=== PATIENT | male | born 1990 | race Caucasian/White ===

== ENCOUNTER 2017-02-07 22:56 | Emergency (ER) | payer BC, OTHER ==
[~2017-02-07] VITALS: Ht 170.2 cm; Wt 75.0 kg
[~2017-02-07 22:56] MED LIST: AMOX875T3 PO; AMPH20CA3 PO; ESCI1TAB10 PO; HYDR-5688 PO
[2017-02-07 23:00] VITALS: TEMP 36.7; Ht 170.2 cm; Wt 75.0 kg
[2017-02-07] MEDS ORDERED: IBUPROFEN 600 MG TAB PO STA (23:10)
[2017-02-07] MEDS ORDERED: ABL/15 PO (23:59)
[2017-02-08 00:11] VITALS: BP 131/82; PULSE 99; O2SAT 100
--- NOTE | 2017-02-08 03:42 | EMERGENCY ROOM VISIT NOTE ---
ED Visit Note First contact with patient: 23:04 CHIEF COMPLAINT: Ankle pain HISTORY OF PRESENT ILLNESS: This 26-year-old patient presents to the emergency department with friend after sustaining an injury to the right ankle and foot with a twisting, inversion motion jumping off a truck at work. Patient states this is a work-related injury. The patient complains of pain along the outside of the ankle. The patient complains of pain of the foot. The patient rates the pain as throbbing and 5/10. The patient is barely able to bear weight on the foot. Constant pain, worse with movement, weight bearing, and the dependent position. No knee pain, the patient is able to move their toes. No numbness or weakness of the foot, no laceration. The patient has not had a previous fracture to this ankle. The patient has taken nothing for the pain. The patient denies any other injury. REVIEW OF SYSTEMS: A 6 system review of systems was completed with positives and pertinent negatives listed in the HPI. ALLERGIES: Bee stings, sulfa MEDICATIONS: Stormy, reviewed PMH: ADHD, bipolar SOCIAL HISTORY: No drug use PHYSICAL EXAM: Vital Signs: Reviewed Nurse's notes, vital signs stable. GENERAL : Pleasant male, no acute distress, but appears in pain, well-developed, well- nourished. MENTAL STATUS: Alert, oriented to person place and time, and cooperative. MUSCULOSKELETAL: The right ankle is swollen and tender over the lateral malleolus, but the skin is intact and there is no ligamentous instability. There is no fifth metatarsal tenderness. There is tenderness over the rest of the foot. There is no calf or tibia/fibular tenderness. There is no visual deformity. The foot and toes are warm and well-perfused. Dorsalis pedis pulse 2+. Sensation to pain and light touch is intact. Capillary refill less than 2 seconds. EMERGENCY DEPARTMENT COURSE: I examined the patient. Motrin and ice pack were given. X-rays of the right foot and ankle were reviewed by myself and my attending and reveal no fracture. AirGel splint was applied to the ankle under my direction and the position was satisfactory. Neurovascular status was rechecked and intact. The patient was instructed on the use of crutches. Patient was advised to follow-up with his Worker's Comp. doctor or with orthopedics in a few days if symptoms persist or here in the ER sooner for severe pain, numbness, tingling, worsening signs or symptoms or as needed. The patient was discharged home in good condition. Differential diagnoses include sprain, strain, fracture, dislocation and other etiologies were considered. DIAGNOSIS: #1 right ankle sprain #2 work-related injury DISCHARGE INSTRUCTIONS: Ibuprofen(Motrin, Advil) may be used for fever or pain. Use 600mg every six hours as needed. Take with food. Avoid using more than 2400mg in a 24 hour period. Do not use 2400mg per day for more than three consecutive days without physician direction. Prolonged inappropriate use can lead to stomach upset or ulcers. This medication can be taken if you need to drive, work, or perform activities which may be dangerous when taking narcotic pain medication. (AND/OR) Acetaminophen(Tylenol) may be used for fever or pain. Use 1000mg every six hours as needed. Avoid using more than 4000mg in a 24 hour period. This medication can be taken if you need to drive, work, or perform activities which may be dangerous when taking narcotic pain medication. Ice compresses for 20 minutes at a time four times daily for 2-3 days. Use the crutches as instructed. Rest and elevate your injury. Wear ankle gel splint until pain subsides. Do not have it so tight that you cannot feel your foot. Continue current medications. Return to the ER immediately for any numbness, tingling, severe pain, extreme swelling in the extremity or as needed. Call Orthopedics in 3-5 days if symptroms persist to arrange follow up for your injury. Current/Historical Medications Scheduled Amphetamine-Dextroamphetamine 20MG (Adderall Xr 20MG), 20 MG PO BID Aripiprazole (Abilify), 15 MG PO DAILY Allergies Coded Allergies: BEE STING (Verified Allergy, Intermediate, swelling, 02/07/17) Sulfa Antibiotics (Unverified Allergy, Unknown, UNKNOWN, 02/07/17) Vital Signs Date Time Temp Pulse Resp B/P (MAP) Pulse Ox O2 Delivery O2 Flow Rate FiO2 02/08/17 00:11 99 18 131/82 100 02/07/17 23:00 36.7 121 18 124/76 99 Room Air Medications Administered Medications (Trade) Dose Ordered Sig/Maria Luisa Route Start Time Stop Time Status Last Admin Dose Admin Ibuprofen (Motrin Tab) 600 mg NOW STAT PO 02/07/17 23:10 02/07/17 23:11 DC 02/07/17 23:16 600 MG Departure Information Referrals Eros Matta M.D. (PCP) Patient Instructions [facility]
--- NOTE | 2017-02-08 07:52 | DIAGNOSTIC IMAGING REPORT ---
R ANKLE MIN 3 VIEWS ROUTINE CLINICAL HISTORY: fall, pain trauma. Pain. COMPARISON: None. DISCUSSION: Small heel spur. No acute bony abnormality. Ankle mortise is aligned anatomically. There is no evidence for soft tissue swelling. IMPRESSION: Small heel spur. Otherwise negative study. The above report was generated using voice recognition software. It may contain grammatical, syntax or spelling errors. Electronically signed by: Syd Brown M.D. 02/08/2017 7:51 AM Dictated Date/Time: 02/08/2017 7:50 AM
--- NOTE | 2017-02-08 07:54 | DIAGNOSTIC IMAGING REPORT ---
R FOOT MIN 3 VIEWS ROUTINE CLINICAL HISTORY: fall, pain COMPARISON: None. DISCUSSION: The bones and joint spaces appear intact. There is no evidence of fracture, dislocation or bony disease. There is no evidence for soft tissue swelling. IMPRESSION: Negative study. The above report was generated using voice recognition software. It may contain grammatical, syntax or spelling errors. Electronically signed by: Syd Brown M.D. 02/08/2017 7:52 AM Dictated Date/Time: 02/08/2017 7:51 AM
== END 2017-02-08 00:12 | disposition home or self-care (01) ==
LOC: C.EDB 22:58 → C.EDC 02-08 00:12
DX: S93.401A Sprain of unspecified ligament of right ankle, initial encounter (principal); X50.9XXA Other and unspecified overexertion or strenuous movements or postures, initial encounter; Y99.0 Civilian activity done for income or pay; M77.9 Enthesopathy, unspecified; F90.9 Attention-deficit hyperactivity disorder, unspecified type; Z79.899 Other long term (current) drug therapy

== ENCOUNTER 2021-01-25 01:33 | Inpatient (IN) ==
[2021-01-25] MEDS ORDERED: SODIUM CHLORIDE 0.9% 1000ML 1,000 ML IV SCH ×2 (01:45→09:49)
--- NOTE | 2021-01-25 01:55 | Emergency Department Note ---
History of Present Illness General Chief complaint: Unresponsive Stated complaint: UNRESPONSIVE/OVERDOSE Time Seen by Provider: 01/25/21 01:41 History of Present Illness This 30-year-old presents to the ER complaining of overdose Location: Generalized Quality: Overdose Severity: Moderate Duration: Tonight Timing: Tonight Context: Patient states he took some drugs and overdosed on accident. He does not recall what he took Modifying factors: better with Narcan; worse with nothing Patient was given Narcan from EMS and police. Apparently there was no pulse and the girlfriend was doing CPR. EMS arrived and states there was a pulse. Patient does not recall the events. Patient will not tell me what he took. He states he does use drugs. He would not tell me what type of drugs he uses. Patient currently complains of a headache. Patient denies chest pain, dyspnea, abdominal pain or any other medical complaints. He states he snorts his drugs. He does not want rehab. Home Medications Medication Instructions Recorded Confirmed Type bupropion HCl 300 mg 24 hr tablet, 300 mg PO QAM 10/21/19 10/21/19 History extended release Allergies Allergy/AdvReac Type Severity Reaction Status Date / Time bee venom protein (honey bee) Allergy Intermediate swelling Verified 10/21/19 19:35 Sulfa (Sulfonamide Allergy Unknown Unknown Verified 10/21/19 19:35 Antibiotics) Past Med/Surg History Medical History (Updated 01/25/21 @ 03:50 by Pushpa Leon PA-C) Depression Surgical History (Updated 01/25/21 @ 01:52 by Pushpa Leon PA-C) No pertinent past surgical history Social History Smoking Status: Current every day smoker Tobacco Type: Cigarettes Feels Safe at Home: Yes Review of Systems A total of 10 systems reviewed and were otherwise negative Physical Exam Vital Signs Vital Signs - 24 hr 01/25/21 01:39 01/25/21 01:40 01/25/21 01:47 Temperature 36.8 C 36.7 C Temperature Source Oral Oral Pulse Rate 132 H 129 H Pulse Rate [Right Finger] 108 H Pulse Rate from SpO2 Sensor 129 H Respiratory Rate 16 24 16 Blood Pressure 128/64 Blood Pressure [Right Arm] 128/64 Blood Pressure Mean 85 Blood Pressure Mean [Right Arm] 85 Blood Pressure Position Lying Pulse Oximetry 98 97 95 Oxygen Delivery Method Room Air Room Air Sepsis Recent Fever Within 48 Hours No Sepsis New/Unexplained Change in Mental Status No Sepsis Action Taken by Nursing No Action Required 01/25/21 01:50 01/25/21 02:11 01/25/21 02:20 Temperature Temperature Source Pulse Rate 117 H 120 H 112 H Pulse Rate [Right Finger] Pulse Rate from SpO2 Sensor 117 H 113 H Respiratory Rate 27 H 23 20 Blood Pressure Blood Pressure [Right Arm] Blood Pressure Mean Blood Pressure Mean [Right Arm] Blood Pressure Position Pulse Oximetry 94 93 Oxygen Delivery Method Sepsis Recent Fever Within 48 Hours Sepsis New/Unexplained Change in Mental Status Sepsis Action Taken by Nursing 01/25/21 02:30 01/25/21 02:45 01/25/21 03:30 Temperature Temperature Source Pulse Rate 109 H 109 H 103 H Pulse Rate [Right Finger] Pulse Rate from SpO2 Sensor 111 H 109 H 103 H Respiratory Rate 20 18 20 Blood Pressure 102/65 101/66 92/55 L Blood Pressure [Right Arm] Blood Pressure Mean 77 77 67 Blood Pressure Mean [Right Arm] Blood Pressure Position Pulse Oximetry 92 92 92 Oxygen Delivery Method Room Air Sepsis Recent Fever Within 48 Hours Sepsis New/Unexplained Change in Mental Status Sepsis Action Taken by Nursing 01/25/21 03:45 01/25/21 04:00 01/25/21 04:15 Temperature Temperature Source Pulse Rate 105 H 99 H 108 H Pulse Rate [Right Finger] Pulse Rate from SpO2 Sensor 104 H 98 H 107 H Respiratory Rate 22 21 25 H Blood Pressure 98/57 L 103/57 L 100/68 Blood Pressure [Right Arm] Blood Pressure Mean 70 72 78 Blood Pressure Mean [Right Arm] Blood Pressure Position Pulse Oximetry 91 93 96 Oxygen Delivery Method Room Air Room Air Sepsis Recent Fever Within 48 Hours Sepsis New/Unexplained Change in Mental Status Sepsis Action Taken by Nursing 01/25/21 05:00 01/25/21 05:15 01/25/21 05:45 Temperature Temperature Source Pulse Rate 97 H 99 H 102 H Pulse Rate [Right Finger] Pulse Rate from SpO2 Sensor 98 H 98 H 100 H Respiratory Rate 14 18 18 Blood Pressure 102/68 116/63 119/45 L Blood Pressure [Right Arm] Blood Pressure Mean 79 80 69 Blood Pressure Mean [Right Arm] Blood Pressure Position Pulse Oximetry 98 98 99 Oxygen Delivery Method Sepsis Recent Fever Within 48 Hours Sepsis New/Unexplained Change in Mental Status Sepsis Action Taken by Nursing VITALS: Vitals are noted on the nurse's note and reviewed by myself. Vital signs stable. GENERAL: White male following all commands, in no acute distress, nondiaphoretic, well-developed well-nourished. SKIN: Small contusion to right synagogue region, the rest of the skin was without rashes, erythema, edema, or bruising. There is no tenting of the skin. Capillary reflex less than 2 seconds. HEAD: Normocephalic atraumatic. EARS: External auditory canals clear, EYES: Pupils equal round and reactive to light and accommodation. Conjunctivae without injection, sclerae without icterus. Extraocular movements intact. NOSE: Patent, turbinates without inflammation or discharge. MOUTH: Mucous membranes moist. Pharynx without erythema or exudate. Uvula midline. Airway patent. Tongue does not deviate. NECK: Supple without nuchal rigidity. No lymphadenopathy. No thyromegaly. Cervical spine is nontender. No JVD. HEART: Regular rate and rhythm without murmurs gallops or rubs. LUNGS: Clear to auscultation bilaterally without wheezes, rales or rhonchi. No retractions or accessory muscle use. ABDOMEN: Positive bowel sounds x 4. Normal tympanic percussion. Soft, nontender, without masses or organomegaly. Walls sign negative. No guarding or rebound tenderness. No CVA tenderness MUSCULOSKELETAL: No muscle atrophy, erythema, or edema noted. NEURO: Patient was alert and oriented to person place and time. Normal sensation to light and sharp touch. No focal neurological deficits. Course Administered Medications Discontinued Medications Sodium Chloride (Nss 1000ml) 1,000 mls @ 999 mls/hr IV .Q1H1M RICKY Stop: 01/25/21 02:45 Last Infusion: 01/25/21 03:17 Dose: 0 mls/hr Documented by: [id number] Admin: 01/25/21 02:13 Dose: 999 mls/hr Documented by: [id number] Lactated Ringer's (Lr) 1,000 mls @ 999 mls/hr IV .Q1H1M ONE Stop: 01/25/21 04:19 Last Infusion: 01/25/21 04:27 Dose: 0 mls/hr Documented by: [id number] Admin: 01/25/21 03:26 Dose: 999 mls/hr Documented by: [id number] Ioversol (Optiray 320 125ml) 125 ml IV ONCE ONE Stop: 01/25/21 03:10 Last Admin: 01/25/21 03:09 Dose: 105 ml Documented by: [id number] Impression & Plan Accidental heroin overdose, Elevated troponin Discharge Plan Visit Data Chief Complaint: Unresponsive Stated Complaint: UNRESPONSIVE/OVERDOSE ED Provider: Kinga Lott ED Midlevel Provider: Pushpa Leon Discharge Problem: Accidental heroin overdose, Elevated troponin Patient Disposition: Admitted As Inpatient Condition: Fair Discharge Instructions Interventions: ED Discharge Assessment Last Done: 01/25/21 06:02 Forms Stand Alone Forms: My [facility] [employer] Prescriptions Prescriptions: No Action bupropion HCl 300 mg Tablet Extended Release 24 Hr 300 mg PO QAM RF: 0 Referrals Referrals: Eros Matta MD [Primary Care Provider] - Medical Decision Making Medical Records Attestation: I reviewed the patient's medical records. Home Medications Current Medication List: was personally reviewed by me Laboratory Data Attestation: I reviewed the patient's lab results. Result diagrams: 01/25/21 01:54 01/25/21 01:54 Lab Results 01/25/21 01/25/21 01/25/21 Range/Units 01:54 01:54 01:54 WBC 25.56 H (4.8-10.8) K/uL RBC 4.93 (4.7-6.1) M/uL Hgb 15.5 (14.0-18.0) g/dL Hct 44.4 (42-52) % MCV 90.1 (80-100) fL MCH 31.4 (25-34) pg MCHC 34.9 (32-36) g/dL RDW Std Deviation 41.5 (36.4-46.3) fL RDW Coeff of Pedro 12.7 (11.5-14.5) % Plt Count 223 (130-400) K/uL MPV 10.0 (7.4-10.4) fL Immature Gran % (Auto) 0.9 % Neut % (Auto) 85.2 % Lymph % (Auto) 9.8 % [place] % (Auto) 3.9 % Eos % (Auto) 0.0 % Baso % (Auto) 0.2 % Neut # (Auto) 21.77 H (1.4-6.5) K/uL Lymph # (Auto) 2.51 (1.2-3.4) K/uL [place] # (Auto) 1.00 H (0.11-0.59) K/uL Eos # (Auto) 0.01 (0-0.5) K/uL Baso # (Auto) 0.04 (0-0.2) K/uL Immature Gran # (Auto) 0.23 H (0.00-0.02) K/uL RBC Morphology Unremarkable Sodium 136 (136-145) mmol/L Potassium 3.6 (3.5-5.1) mmol/L Chloride 100 (98-107) mmol/L Carbon Dioxide 25 (21-32) mmol/L Anion Gap 11.0 (3-11) BUN 11 (7-18) mg/dl Creatinine 1.64 H (0.6-1.4) mg/dl Est Cr Clr Drug Dosing 69.2 ml/min Est GFR ( Amer) 65.0 ml/min Est GFR (Non-Af Amer) 56.1 ml/min BUN/Creatinine Ratio 7.0 L (10-20) Glucose 254 H (70-99) mg/dl Calcium 8.7 (8.5-10.1) mg/dl Magnesium 2.5 H (1.8-2.4) mg/dl Total Bilirubin 0.3 (0.2-1) mg/dl AST 46 H (15-37) U/L ALT 92 H (12-78) U/L Alkaline Phosphatase 63 (45-117) U/L Total Creatine Kinase 109 (39-308) U/L Troponin I 0.082 H* (0-0.045) ng/ml Total Protein 7.7 (6.4-8.2) gm/dl Albumin 4.2 (3.4-5.0) gm/dl Globulin 3.5 (2.5-4.0) gm/dl Albumin/Globulin Ratio 1.2 (0.9-2) Salicylates 2.8 (2.8-20) mg/dl Acetaminophen < 2 L (10-30) ug/ml Ethyl Alcohol mg/dL (0-3) mg/dl COVID-19 Eval Order SARS-CoV-2 (PCR) (Negative) 01/25/21 01/25/21 01/25/21 Range/Units 01:54 03:59 03:59 WBC (4.8-10.8) K/uL RBC (4.7-6.1) M/uL Hgb (14.0-18.0) g/dL Hct (42-52) % MCV (80-100) fL MCH (25-34) pg MCHC (32-36) g/dL RDW Std Deviation (36.4-46.3) fL RDW Coeff of Pedro (11.5-14.5) % Plt Count (130-400) K/uL MPV (7.4-10.4) fL Immature Gran % (Auto) % Neut % (Auto) % Lymph % (Auto) % [place] % (Auto) % Eos % (Auto) % Baso % (Auto) % Neut # (Auto) (1.4-6.5) K/uL Lymph # (Auto) (1.2-3.4) K/uL [place] # (Auto) (0.11-0.59) K/uL Eos # (Auto) (0-0.5) K/uL Baso # (Auto) (0-0.2) K/uL Immature Gran # (Auto) (0.00-0.02) K/uL RBC Morphology Sodium (136-145) mmol/L Potassium (3.5-5.1) mmol/L Chloride (98-107) mmol/L Carbon Dioxide (21-32) mmol/L Anion Gap (3-11) BUN (7-18) mg/dl Creatinine (0.6-1.4) mg/dl Est Cr Clr Drug Dosing ml/min Est GFR ( Amer) ml/min Est GFR (Non-Af Amer) ml/min BUN/Creatinine Ratio (10-20) Glucose (70-99) mg/dl Calcium (8.5-10.1) mg/dl Magnesium (1.8-2.4) mg/dl Total Bilirubin (0.2-1) mg/dl AST (15-37) U/L ALT (12-78) U/L Alkaline Phosphatase (45-117) U/L Total Creatine Kinase (39-308) U/L Troponin I (0-0.045) ng/ml Total Protein (6.4-8.2) gm/dl Albumin (3.4-5.0) gm/dl Globulin (2.5-4.0) gm/dl Albumin/Globulin Ratio (0.9-2) Salicylates (2.8-20) mg/dl Acetaminophen (10-30) ug/ml Ethyl Alcohol mg/dL < 3.0 (0-3) mg/dl COVID-19 Eval Order Covid19 at [facility] SARS-CoV-2 (PCR) NEGATIVE (Negative) 01/25/21 Range/Units 05:14 WBC (4.8-10.8) K/uL RBC (4.7-6.1) M/uL Hgb (14.0-18.0) g/dL Hct (42-52) % MCV (80-100) fL MCH (25-34) pg MCHC (32-36) g/dL RDW Std Deviation (36.4-46.3) fL RDW Coeff of Pedro (11.5-14.5) % Plt Count (130-400) K/uL MPV (7.4-10.4) fL Immature Gran % (Auto) % Neut % (Auto) % Lymph % (Auto) % [place] % (Auto) % Eos % (Auto) % Baso % (Auto) % Neut # (Auto) (1.4-6.5) K/uL Lymph # (Auto) (1.2-3.4) K/uL [place] # (Auto) (0.11-0.59) K/uL Eos # (Auto) (0-0.5) K/uL Baso # (Auto) (0-0.2) K/uL Immature Gran # (Auto) (0.00-0.02) K/uL RBC Morphology Sodium (136-145) mmol/L Potassium (3.5-5.1) mmol/L Chloride (98-107) mmol/L Carbon Dioxide (21-32) mmol/L Anion Gap (3-11) BUN (7-18) mg/dl Creatinine (0.6-1.4) mg/dl Est Cr Clr Drug Dosing ml/min Est GFR ( Amer) ml/min Est GFR (Non-Af Amer) ml/min BUN/Creatinine Ratio (10-20) Glucose (70-99) mg/dl Calcium (8.5-10.1) mg/dl Magnesium (1.8-2.4) mg/dl Total Bilirubin (0.2-1) mg/dl AST (15-37) U/L ALT (12-78) U/L Alkaline Phosphatase (45-117) U/L Total Creatine Kinase (39-308) U/L Troponin I 0.170 H* (0-0.045) ng/ml Total Protein (6.4-8.2) gm/dl Albumin (3.4-5.0) gm/dl Globulin (2.5-4.0) gm/dl Albumin/Globulin Ratio (0.9-2) Salicylates (2.8-20) mg/dl Acetaminophen (10-30) ug/ml Ethyl Alcohol mg/dL (0-3) mg/dl COVID-19 Eval Order SARS-CoV-2 (PCR) (Negative) Imaging Data Attestation: I personally reviewed and interpreted this imaging study as follows: MDM Narrative Prior records/ancillary studies reviewed. Triage Nursing notes reviewed. Additional history obtained from EMS. The patient's history was concerning for altered mental status and probable overdose. Differential diagnosis: Etiologies such as toxicologic, infection, hypoglycemia, electrolyte abnormalities, cardiac sources, intracerebral event, neurologic, as well as others were entertained. Physical examination: The patient had normal sensorium. No trauma noted. ER treatment provided: IV NSS 1 L bolus An order was placed for continuous cardiac monitoring. The monitor shows a rate of 60-1 50 with a sinus rhythm. On reassessment the patient was stable and improving. Diagnostic interpretation by me: The electrocardiogram was negative for pathologic change. There was no QRS widening or interval prolongation. Normal sinus, normal intervals, no acute ST- T wave changes. Impression sinus tachycardia interpreted by myself EKG ordered for overdose I think arrhythmia is unlikely. EKG shows normal sinus rhythm with no interval abnormalities such as QT prolongation or WPW. There are no findings to suggest Brugada syndrome. Cardiac monitoring in the emergency department reveals no ta chycardic or bradycardic dysrhythmia. Hypertrophic cardiomyopathy was considered but there are no clear historical elements pointing toward this. EKG is not suggestive. The QRS voltage is not extremely large and there are no suggestive Q waves. The labs revealed elevated troponin. Normal CPK Leukocytosis Repeat troponin was ordered at the 3-hour clovis. Imaging studies: CT HEAD: No acute intracranial hemorrhage or skull fractures. No CT evidence of acute infarct. No mass-effect or midline shift or hydrocephalus. Radiologist: Justyn Howe M.D. Chest x-ray with no acute consolidation, pneumothorax or free air my interpretation CTA CHEST: Accounting for limitations with respiratory artifact, there is no evidence for pulmonary embolism. Dependent subsegmental changes are presumed atelectasis with expiratory lung volumes. No definite focal consolidation. No pleural effusion or pneumothorax. The thoracic aorta and cardiac chambers are unremarkable. No pericardial e ffusion. No significant mediastinal or hilar adenopathy. No acute osseous or significant overlying soft tissue abnormality. Radiologist: Harpreet Jain MD Consultation: A consultation was placed with the hospitalist. The case was discussed and diagnostics were reviewed. The patient was evaluated in the ER for further treatment. This appears to be consistent with heroin overdose with a positive troponin. Patient does admit to snorting heroin tonight. Patient declines rehab. Montrell farias was consulted and admitted to the medical service. He was informed that Narcan is [id number]. By the evaluation outlined above emergent etiologies such as infection, hypoglycemia, electrolyte abnormalities, intracerebral event, neurologic,as well as others were deemed relatively unli tom. The pt informed about the findings as listed above. All questions were answered and pleased with the treatment. The chart was completed utilizing [employer] Speech voice recognition software. Grammatical errors, random word insertions, pronoun errors, and incomplete sentences are an occassional consequence of this system due to software limitations, ambient noise, and hardware issues. Any formal questions or concerns about the content, text, or information contained within the body of this dictation should be directly addressed to the physician tv production assistant for clarification. Discharge Problem: Accidental heroin overdose Qualifiers: Encounter type: initial encounter Qualified Code(s): T40.1X1A - Poisoning by heroin, accidental (unintentional), initial encounter
[2021-01-25 02:05] LABS: Hematocrit (blood only) 44.4 % (42-52); Hemoglobin 15.5 g/dL (14.0-18.0); Mean Corpuscular Hemoglobin 31.4 pg (25-34); Mean Corpuscular Hgb Conc 34.9 g/dL (32-36); Mean Corpuscular Volume 90.1 fL (80-100); Platelet Count 223 K/uL (130-400); RDW Coefficient of Variation 12.7 % (11.5-14.5); RDW Standard Deviation 41.5 fL (36.4-46.3); Red Blood Count 4.93 M/uL (4.7-6.1); White Blood Count 25.56 K/uL (4.8-10.8)
[2021-01-25 02:25] LABS: Albumin Level 4.2 gm/dl (3.4-5.0); Calcium 8.7 mg/dl (8.5-10.1); Creatinine Clr Calc Pharmacy 69.2 ml/min; Est GFR (Non-African American) 56.1 ml/min; Magnesium 2.5 mg/dl (1.8-2.4); Potassium 3.6 mmol/L (3.5-5.1)
[2021-01-25 02:32] LABS: Acetaminophen < 2 ug/ml (10-30)
[2021-01-25 02:33] LABS: Salicylate 2.8 mg/dl (2.8-20)
[2021-01-25 02:34] LABS: Albumin Globulin Ratio 1.2 (0.9-2); Bilirubin,Total 0.3 mg/dl (0.2-1); Globulin 3.5 gm/dl (2.5-4.0); Total Protein 7.7 gm/dl (6.4-8.2); Troponin I 0.082 ng/ml (0-0.045)
[2021-01-25 02:40] LABS: Basophils # (auto) 0.04 K/uL (0-0.2); Basophils % (auto) 0.2 %; Eosinophils # (auto) 0.01 K/uL (0-0.5); Immature Granulocytes # (auto) 0.23 K/uL (0.00-0.02); Immature Granulocytes % (auto) 0.9 %; Lymphocytes # (auto) 2.51 K/uL (1.2-3.4); Lymphocytes % (auto) 9.8 %; Monocytes % (auto) 3.9 %; Neutrophils # (auto) 21.77 K/uL (1.4-6.5); Neutrophils % (auto) 85.2 %; RBC Morphology Unremarkable
[2021-01-25] MEDS ORDERED: OPTIRAY 320 125ml IV ONE (03:09)
[2021-01-25] MEDS ORDERED: LACTATED RINGER'S 1,000 ML IV ONE (03:19)
--- NOTE | 2021-01-25 07:13 | CT Scan Report ---
CT SCAN OF THE BRAIN WITHOUT IV CONTRAST CLINICAL HISTORY: Change in mental status. Overdose. COMPARISON STUDY: No priors. TECHNIQUE: Unenhanced axial CT scan of the brain is performed from the vertex to the skull base. A d ose lowering technique was utilized adhering to the principles of ALARA. CT DOSE: 537.48 mGy.cm FINDINGS: Brain parenchyma: The brain parenchyma is normal in appearance. There is no hemorrhage, mass effect, or evidence of acute territorial ischemia by CT criteria. Carroll-white matter differentiation is preser warren. No extra-axial fluid collection is seen. Ventricles, sulci, cisterns: Normal in configuration. Intracranial vasculature: The visualized intracranial vasculature at the skull base is normal in appe arance. Calvarium: Unremarkable. Sinuses and mastoids: The visualized paranasal sinuses are clear. The mastoid air cells are well pneu matized. Orbits: The bony orbits are grossly intact. IMPRESSION: No acute intracranial abnormality. ACT 112: Negative or not required by law. Electronically signed by: Martin Kirby M.D. 01/25/2021 7:12 AM
--- NOTE | 2021-01-25 07:23 | CT Scan Report ---
CHEST CTA for PULMONARY ARTERIES CT DOSE: 349.04 mGy.cm HISTORY: Overdose. Altered mental status. Assess for pulmonary embolus. TECHNIQUE: Multiaxial CT images of the chest were performed following the intravenous administration of contrast to evaluate the pulmonary arteries. Maximal intensity projection images were also obtaine d. A dose lowering technique was utilized adhering to the principles of ALARA. COMPARISON STUDY: None. FINDINGS: There is a normal caliber thoracic aorta with no evidence for dissection. There is no evide nce for pulmonary embolus. No pleural effusions. No pneumothorax. The liver and spleen are unremarkab le. No mediastinal or hilar lymphadenopathy. The central airways are patent. Mild dependent changes a t the lung bases. There is mild respiratory motion artifact resulting in suboptimal evaluation of the distal lower lobe pulmonary arteries. IMPRESSION: No evidence for pulmonary embolus. ACT 112: Negative or not required by law. Electronically signed by: Marko Montero M.D. 01/25/2021 7:22 AM
--- NOTE | 2021-01-25 07:38 | XRay Report ---
XR chest 1V portable HISTORY: Overdose. Altered mental status. COMPARISON: None. FINDINGS: The lungs are clear. Cardiac silhouette is normal in size. No pleural effusions. No pneumot horax. IMPRESSION: No acute process. ACT 112: Negative or not required by law. Electronically signed by: Marko Montero M.D. 01/25/2021 7:37 AM
--- NOTE | 2021-01-25 08:03 | History and Physical Report ---
DATE OF ADMISSION: 01/25/2021. CHIEF COMPLAINT: Drug overdose and unresponsiveness. HISTORY OF PRESENT ILLNESS: This is a 30-year-old male with past medical history significant for depression, anxiety, history of drug use in the past, was brought in because of an unresponsive episode at home. The patient lives with his girlfriend. He does not know what happened. He says he was snorting heroin. Currently he is alert and awake. Says He did not use the heroin for last 6 months, but he got it for free and he was using it last night. He said he did not use much and he does not know what happened. It looks like he was passed out and when the EMS arrived, his girlfriend was doing CPR. He was given Narcan by the EMS and was brought in here. Currently, he is alert and awake, he is hemodynamically stable. CTA of the chest and CT of the head results are pending. Labs show white count of 25,000. Creatinine 1.6, glucose 254. SARS-CoV-2 PCR negative. The patient says he has some pain in the right brow region of the head. He thinks he might have hit it when he might have fallen down. Denies any headache. Other than that, denies any other pain. No blurred vision, double vision, no earache, no runny nose, no sore throat. He has smoker's cough. He says he smokes 1 pack a day for many years. Currently, he is feeling dry, wants to drinks water. Denies any chest pain. No shortness of breath, no nausea, no vomiting, no abdominal pain. He says he has normal bowel and bladder movements. Denies any blood in the stools or black stools, no hematuria. No rash. Once in a while, he says his body swells up. He says he used to do IV drugs a long time back, but not any more. ALLERGIES: BEE VENOM, SULFA ANTIBIOTICS. PAST MEDICAL HISTORY: As mentioned above. PAST SURGICAL HISTORY: Unknown at this time. MEDICATIONS: Looks like he is on Wellbutrin. SOCIAL HISTORY: Lives with girlfriend. Smokes 1 pack of cigarettes daily, uses drugs. FAMILY HISTORY: Unknown at this time. REVIEW OF SYSTEMS: As per HPI. Rest of the review of systems is negative. PHYSICAL EXAMINATION: GENERAL: The patient is of moderate build, not in acute distress. VITAL SIGNS: Temperature 36.7, pulse 99, respiratory rate 18, blood pressure 116/63, oxygen 98% on room air. HEENT: Pupils equal, round and reactive to light. Oral mucosa dry. NECK: No JVD. No neck masses. CARDIOVASCULAR: S1 and S2 heard, regular rate and rhythm. No murmur, no gallop. RESPIRATORY SYSTEM: Normal AP diameter. No accessory muscle use. No wheezing, no crackles. ABDOMEN: Soft, bowel sounds present, nontender, no distention. CENTRAL NERVOUS SYSTEM: Cranial nerves II-XII grossly intact, nonfocal. EXTREMITIES: No edema, no erythema. LABORATORY DATA: WBC 25, hemoglobin 15.5, hematocrit 44.4, platelets 223. Sodium 136, potassium 3.6, chloride 100, bicarbonate 25, BUN 11, creatinine 1.6, serum glucose 254, calcium 8.7, magnesium 2.5, total bilirubin 0.3, AST 46, ALT 92, alkaline phosphatase 63, total creatinine kinase 109. Troponin I of 0.17. Salicylate 2.8, acetaminophen less than 2, ethyl alcohol less than 3. SARS-CoV-2 PCR negative. IMAGING DATA: CTA of the head and CTA of the chest, results pending. Chest x- ray, no acute findings. ASSESSMENT AND PLAN: This is a 30-year-old male presents who presents with drug overdose and unresponsiveness. 1. Drug overdose and unresponsiveness. Was given Narcan, currently alert and awake. Says he snorted heroin. History of drug use. He says he does not use them regularly. Currently hemodynamically stable. Will observe in the hospital in tele floor. Will keep him on IV fluids and closely monitor and consult psychiatry. 2. Depression and anxiety: Currently not taking medication regularly. Seems to be on Wellbutrin. As per the [facility] notes, he was recently getting transitioned to Zoloft. It seems he was on Lexapro and Abilify at one point of time. Await psychiatry input. 3. Leukocytosis: Possible aspiration. Will follow the CT of the chest results and will empirically start on Zosyn. 4. Acute kidney injury: Getting fluids. Avoid any nephrotoxic agents. 5. Hyperglycemia: Sugars was 254. Follow HbA1c levels. Follow the blood sugars. 6. Mild elevation of AST and ALT: Will follow the repeat labs. 7. Mild elevation of troponin: Mostly demand ischemia. Will follow the repeat levels. follow ekg.Will also order an echocardiogram. 8. Deep venous thrombosis prophylaxis: Sequential compression devices for now. DISPOSITION: Closely monitor in tele floor. Level 1 full code. Expect to discharge home and follow up with family doctor. Job ID: [id number] MTDD
[2021-01-25] MEDS ORDERED: PIPERACILL/TAZOBAC CONSULT ACTIVE PRN (09:49)
[2021-01-25] MEDS ORDERED: ONDANSETRON INJ 2 MG/ML 2 ML VIAL IV PRN (09:49)
[2021-01-25] MEDS ORDERED: POLYETHYLENE (MIRALAX) 17 GM PACK PO PRN (09:49)
[2021-01-25] MEDS ORDERED: NITROGLYCERIN SL 0.4 MG/TAB TAB SL PRN (09:49)
[2021-01-25] MEDS: LACTATED RINGER'S 1,000 ML IV SCH ×2 (10:24→18:38)
[2021-01-25] MEDS ORDERED: PIPERACILLIN/TAZOBACTAM 3.375 GM in DEXTROSE 5% 100 ML IV ONE (10:30)
[2021-01-25] MEDS: NICOTINE 14 MG/24 HR PATCH TD SCH (11:00)
[2021-01-25 11:18] LABS: BUN Creatinine Ratio 9.2 (10-20); Calcium 8.5 mg/dl (8.5-10.1); Creatinine Clr Calc Pharmacy 111.3 ml/min; Est GFR (African American) 115.4 ml/min; Est GFR (Non-African American) 99.6 ml/min; Magnesium 2.2 mg/dl (1.8-2.4); Potassium 3.5 mmol/L (3.5-5.1)
[2021-01-25 11:54] LABS: Basophils # (auto) 0.02 K/uL (0-0.2); Basophils % (auto) 0.2 %; Eosinophils # (auto) 0.03 K/uL (0-0.5); Eosinophils % (auto) 0.3 %; Hematocrit (blood only) 37.7 % (42-52); Hemoglobin 12.9 g/dL (14.0-18.0); Immature Granulocytes # (auto) 0.03 K/uL (0.00-0.02); Immature Granulocytes % (auto) 0.3 %; Lymphocytes # (auto) 4.03 K/uL (1.2-3.4); Lymphocytes % (auto) 35.9 %; Mean Corpuscular Hemoglobin 30.6 pg (25-34); Mean Corpuscular Hgb Conc 34.2 g/dL (32-36); Mean Corpuscular Volume 89.3 fL (80-100); Monocytes # (auto) 0.74 K/uL (0.11-0.59); Monocytes % (auto) 6.6 %; Neutrophils # (auto) 6.39 K/uL (1.4-6.5); Neutrophils % (auto) 56.7 %; Platelet Count 192 K/uL (130-400); RDW Coefficient of Variation 12.9 % (11.5-14.5); RDW Standard Deviation 41.8 fL (36.4-46.3); Red Blood Count 4.22 M/uL (4.7-6.1); White Blood Count 11.24 K/uL (4.8-10.8)
[2021-01-25 11:57] LABS: Estimated Average Glucose 108 mg/dl; Hemoglobin A1C 5.4 % (4.5-5.6)
--- NOTE | 2021-01-25 13:35 | Hospitalist Progress Note ---
Date of Service January 25, 2021 Assessment & Plan (1) Accidental heroin overdose: (2) Elevated troponin: (3) Leukocytosis: (4) MARY (acute kidney injury): (5) Transaminitis: Plan: This is a 30-year-old male who has a history of Jtssh-Xyjsotfwk-Gudho status post ablation around age 16, depression and anxiety, tobacco abuse, history of prior drug abuse who presented to ER on 01/24 after being found unresponsive at home. He lives with his girlfriend. Patient admits to obtaining free heroin and opted to snort it yesterday. His last drug use was approximately 6 months ago. He has never had a drug overdose in the past. He states he took a smaller amount than he usually does so he is surprised this happened. He does not recall any further events. He was found by his girlfriend who felt he did not have a pulse and initiated CPR. EMS was summoned and was able to obtain a pulse when they arrived to patient. He did receive IV Narcan which improved his status. On admission patient was found to have leukocytosis, acute kidney injury, hyperglycemia, mild transaminitis and mild elevation in troponin likely in setting of demand ischemia, drug overdose and unresponsiveness. Unresponsive Heroin overdose Status post Narcan administration Patient is alert and oriented and overall feels improved Leukocytosis wbc on admission 25k, repeat now 11.24 initial concern for aspiration Started empirically on IV zosyn blood cultures ordered like reactive in setting of OD and unresponsive obtain urine for completeness Elevated troponin likely demand ischemia pt reports MSK chest wall pain 2/2 to CPR Echo reviewed and WNL repeat ecg in am. MARY presented with cr 1.64 repeat 10hrs later 1.02 after fluid administration continue gentle IVF for additional 2 L follow labs likely in setting of initial hypotension due to unresponsive episode Hyperglycemia a1c 5.4 glucose 254 on arrival, likely in setting of unresponsive state resolved Mild transaminitis hepatitis panel pending improving Hx of lozano parkinson white s/p ablation around 13-14 years old Tobacco abuse nicotine patch ordered smoking cessation encourage Dispo: PCU - monitor on telemetry over night, if pt remains stable likely to discharge tomorrow PCP: FULL CODE Pt was seen and examined in collaboration with Dr. Heaton, please see addendum Discussed with pt Girlfriend at his request, Jane, and she understands and in agreement with above Admission and Anticipated Discharge Date Admission Date: January 25, 2021 Supervising Physician Co-Signing Physician Notes Patient is seen and examined at bedside. States having minimal soreness of the chest. Otherwise feels well. Denies any dyspnea, dizziness, nausea, abdominal pain. On exam patient is well-built and nourished, no apparent distress, normocephalic atraumatic, EOMI, lungs are clear to auscultation, normal breath sounds, S1-S2, no murmur, mild chest tenderness on palpation, abdomen soft, nontender, normal bowel sounds, alert, awake, oriented, grossly no focal deficits, no pedal edema. Heroin overdose. Conservative management. Counseled to quit. Leukocytosis likely reactive. No obvious source of infection. Follow-up cultures. Troponin elevation likely secondary to CPR. Echo showed no wall motion abnormality. Troponin levels trending down. Agree with IV fluids for MARY. Avoid nephrotoxic agents. Monitor renal function. Psychiatry consulted. I personally reviewed the record. Patient is interviewed and examined at bedside. Patient's care is coordinated with So Shah PA-C. Please refer to the documentation above for details of patient's presentation and for discussion of other issues. Subjective Patient was seen and examined in room C1 as an ER hold. Follow-up heroin overdose, status post unresponsive with response to Narcan. Currently he feels improved. He admits to some sternal chest pain when he touches his chest. Last he recalls was snorting a small amount of free heroin he received. He has never overdosed in the past. He was drug free for 6 months. States he got some free heroin and decided to snort it. He has an appetite and is asking for breakfast. He denies f/c/s, chest pain, sob, n/v/d, abdominal pain. He does complain of dry cough, "smokers cough." He does smoke 1ppd for 10years and is a social drinker. He is employed with [employer]. He is thankful for his girlfriend who found him and started administering CPR. Review of Systems Review of Systems: All systems reviewed & are unremarkable except as noted in HPI & below Physical Exam Physical Exam: Gen: WD/WN, M, NAD, A&O x3 HEENT: Normocephalic, atraumatic, conjunctivae moist and hyperemic, sclerae anicteric, mucous membranes moist. Lung: Clear to Auscultation bilaterally, no wheezes/rales/rhonchi Heart: Regular rate, regular rhythm, no murmurs, rubs, or gallops Abdomen: Soft, NT, ND +BS x 4 Extremities: No edema Skin: Warm, no rash, negative turgor. Results & Data Results & Data ([facility]) Vital Signs (Past 12 Hours) Vital Signs Temp Pulse Pulse Resp BP BP Pulse Ox 01/25/21 11:39 37 C 88 16 102/67 96 01/25/21 09:50 36.8 C 89 20 110/78 98 01/25/21 09:03 36.7 C 80 18 107/69 98 01/25/21 05:45 102 H 18 119/45 L 99 01/25/21 05:15 99 H 18 116/63 98 01/25/21 05:00 97 H 14 102/68 98 01/25/21 04:15 108 H 25 H 100/68 96 01/25/21 04:00 99 H 21 103/57 L 93 01/25/21 03:45 105 H 22 98/57 L 91 01/25/21 03:30 103 H 20 92/55 L 92 01/25/21 02:45 109 H 18 101/66 92 01/25/21 02:30 109 H 20 102/65 92 01/25/21 02:20 112 H 20 93 01/25/21 02:11 120 H 23 01/25/21 01:50 117 H 27 H 94 01/25/21 01:47 36.7 C 108 H 16 128/64 95 01/25/21 01:40 129 H 24 97 01/25/21 01:39 36.8 C 132 H 16 128/64 98 Laboratory Results Short CBC 01/25/21 01/25/21 01/25/21 Range/Units 01:54 01:54 10:47 WBC 25.56 H 11.24 H D (4.8-10.8) K/uL Hgb 15.5 12.9 L (14.0-18.0) g/dL Hct 44.4 37.7 L (42-52) % Plt Count 223 192 (130-400) K/uL Creatinine 1.64 H (0.6-1.4) mg/dl 01/25/21 Range/Units 10:47 WBC (4.8-10.8) K/uL Hgb (14.0-18.0) g/dL Hct (42-52) % Plt Count (130-400) K/uL Creatinine 1.02 (0.6-1.4) mg/dl BMP 01/25/21 01/25/21 01:54 10:47 Sodium 136 138 Potassium 3.6 3.5 Chloride 100 104 Carbon Dioxide 25 28 BUN 11 9 Creatinine 1.64 H 1.02 Glucose 254 H 107 H Calcium 8.7 8.5 Cardiac Enzymes 01/25/21 01/25/21 01/25/21 Range/Units 01:54 05:14 10:47 Total Creatine Kinase 109 (39-308) U/L Troponin I 0.082 H* 0.170 H* 0.089 H* (0-0.045) ng/ml Liver Function 01/25/21 Range/Units 01:54 Total Bilirubin 0.3 (0.2-1) mg/dl AST 46 H (15-37) U/L ALT 92 H (12-78) U/L Alkaline Phosphatase 63 (45-117) U/L Albumin 4.2 (3.4-5.0) gm/dl Diagnostic Findings Chest X-Ray 01/25/21 01:45 XR chest 1V portable HISTORY: Overdose. Altered mental status. COMPARISON: None. FINDINGS: The lungs are clear. Cardiac silhouette is normal in size. No pleural effusions. No pneumothorax. IMPRESSION: No acute process. ACT 112: Negative or not required by law. Electronically signed by: Marko Montero M.D. 01/25/2021 7:[address] 01/25/21 01:45 CT SCAN OF THE BRAIN WITHOUT IV CONTRAST CLINICAL HISTORY: Change in mental status. Overdose. COMPARISON STUDY: No priors. TECHNIQUE: Unenhanced axial CT scan of the brain is performed from the vertex to the skull base. A dose lowering technique was utilized adhering to the principles of ALARA. CT DOSE: 537.48 mGy.cm FINDINGS: Brain parenchyma: The brain parenchyma is normal in appearance. There is no hemorrhage, mass effect, or evidence of acute territorial ischemia by CT criteria. Carroll-white matter differentiation is preserved. No extra-axial fluid collection is seen. Ventricles, sulci, cisterns: Normal in configuration. Intracranial vasculature: The visualized intracranial vasculature at the skull base is normal in appearance. Calvarium: Unremarkable. Sinuses and mastoids: The visualized paranasal sinuses are clear. The mastoid air cells are well pneumatized. Orbits: The bony orbits are grossly intact. IMPRESSION: No acute intracranial abnormality. ACT 112: Negative or not required by law. Electronically signed by: Martin Kirby M.D. 01/25/2021 7:12 AM Chest CTA 01/25/21 02:36 CHEST CTA for PULMONARY ARTERIES CT DOSE: 349.04 mGy.cm HISTORY: Overdose. Altered mental status. Assess for pulmonary embolus. TECHNIQUE: Multiaxial CT images of the chest were performed following the intravenous administration of contrast to evaluate the pulmonary arteries. Maximal intensity projection images were also obtained. A dose lowering technique was utilized adhering to the principles of ALARA. COMPARISON STUDY: None. FINDINGS: There is a normal caliber thoracic aorta with no evidence for dissection. There is no evidence for pulmonary embolus. No pleural effusions. No pneumothorax. The liver and spleen are unremarkable. No mediastinal or hilar lymphadenopathy. The central airways are patent. Mild dependent changes at the lung bases. There is mild respiratory motion artifact resulting in suboptimal evaluation of the distal lower lobe pulmonary arteries. IMPRESSION: No evidence for pulmonary embolus. ACT 112: Negative or not required by law. Electronically signed by: Marko Montero M.D. 01/25/2021 7:22 AM Echo: The left ventricle was normal in size There is normal left ventricular wall thickness. The ventricular wall motion is normal. Ejection fraction equals 55 to 60% There is no significant valvular pathology The right ventricle was normal in size and function Doppler findings do not suggest pulmonary hypertension There is no pericardial effusion. Medications Administered Current Inpatient Medications Acetaminophen (Acetaminophen 325 Mg Tab) 650 mg PO Q4H PRN PRN Reason: Pain or Fever Stop: 02/24/21 09:48 Lactated Ringer's (Lr) 1,000 mls @ 125 mls/hr IV .Q8H RICKY Stop: 01/26/21 02:29 Last Admin: 01/25/21 10:24 Dose: 125 mls/hr Documented by: Piperacillin Sod/Tazobactam (Sod 3.375 gm/ Dextrose) 115 mls @ 28.75 mls/hr IV Q8H [facility]; Protocol Stop: 01/27/21 09:48 Miscellaneous (Remove Nicoderm Patch) 1 ea N/A DAILY@[id number] [facility] Stop: 02/25/21 08:58 Miscellaneous Information (Piperacill/Tazobac Consult Active) 1 ea N/A UD PRN PRN Reason: Consult Stop: 02/24/21 09:48 Nicotine (Nicotine 14 Mg/24 Hr Patch) 14 mg TD QAM [facility] Stop: 02/24/21 10:29 Last Admin: 01/25/21 11:00 Dose: 14 mg Documented by: Nitroglycerin (Nitroglycerin Sl 0.4 Mg/Tab Tab) 0.4 mg SL UD PRN PRN Reason: Chest Pain Stop: 02/24/21 09:48 Ondansetron HCl (Ondansetron Inj 2 Mg/Ml 2 Ml Vial) 4 mg IV Q6H PRN PRN Reason: Nausea Stop: 02/24/21 09:48 Polyethylene Glycol (Polyethylene (Miralax) 17 Gm Pack) 17 gm PO DAILY PRN PRN Reason: Constipation Stop: 02/24/21 09:48 ECG Rate (beats per minute): 92 Rhythm: normal sinus Additional Comments: incomplete RBBB, reading as inferior infarct (1) Accidental heroin overdose Encounter type: initial encounter Qualified Code(s): T40.1X1A - Poisoning by heroin, accidental (unintentional), initial encounter
--- NOTE | 2021-01-25 15:12 | Psychiatric Consultation ---
Date of Consultation January 25, 2021 Impression / Recommendations Impression 30 yo male s/p opiate OD, no evidence of suicide attempt (1) Depressive disorder: patient refuses D&A counseling and rehab he is encouraged to restart Zoloft (50 mg and titrate to 150 mg as tolerated) with f/u with Dr. Matta, but only if he can commit to taking consistently abstain from substances Risk Factors Assessment Do You Have Access To A Gun?: Yes (girlfriend confirms no safety concern, aware we rec secured) Psych History Identifying Data 30 yo male admitted earlier this am following an accidental OD. Consult is by hospitalist services given seriousness of ingestion to screen for SI. Chief Complaint "yeah, this was stupid, I'd be clean for like 3 years". History of Present Illness Patient was found unconscious and pulseless by his girlfriend. He received Narcan by EMS and admitted to snorting heroin, "maybe fentanyl". He denies that he was feeling suicidal or that the use was in anyway an attempt to harm himself. He feels guilty about upsetting his girlfriend as "a friend pulled this on me" meaning he witnessed an OD/had to activate EMS, etc. Last use was 6 months ago "1 time" on a weekend". He has been prescribed Zoloft 150 mg (last surescripts fill 01/13/21) but states hasn't taken "anything for weeks". Girlfriend was contacted by liaison with his permission and she collaborated his account and denied safety concerns. Past Psychiatric History Previous Psych History: saw a psychiatrist and a therapist as a minor but cannot recall, ?hx of ADHD Outpatient Services: none Previous Psych Admissions: none Do You Have Access To A Gun?: Yes (girlfriend confirms no safety concern, aware we rec secured) History of Previous Suicide Attempt: No Past Medication Trials: Lexapro, maybe Wellbutrin, most recently Zoloft Allergies Allergy/AdvReac Type Severity Reaction Status Date / Time bee venom protein (honey bee) Allergy Intermediate swelling Verified 10/21/19 19:35 Sulfa (Sulfonamide Allergy Unknown Unknown Verified 10/21/19 19:35 Antibiotics) Family History multiple family members with depression and anxiety. 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[employer] ) Marital Status: Single Number Of Children: 0 Beliefs That Will Affect Care: None History of Legal Problems: denied Patient History Medical History Depression History of Mqwyz-Vqjopbpvv-Dkfqs (WPW) syndrome Surgical History History of arthroscopy of knee History of prior ablation treatment History of surgery on right wrist Social History Smoking Status: Current every day smoker Tobacco Type: Cigarettes Hx Alcohol Use: Yes Hx Substance Use: Yes Communication Ability: Effective Beliefs That Will Affect Care: None Current Living Situation: Alone Other Information That Helps Us Care for You: No Feels Safe at Home: Yes Safety Concerns: Feels Safe At This Time Physical Exam Psychiatric: Orientation: alert and oriented x 3 Apperance: appropriately dressed and appropriately groomed Eye Contact: good eye contact Motor Behavior: no abnormal motor movements Speech: normal rate/rhythm/volume of speech Affect: + depressed affect Mood: + depressed mood Thought Process: goal directed thought process Thought Content: reality based without delusions Suicidal Thoughts: denies suicidal thoughts Homicidal Thoughts: denies homicidal thoughts Hallucinations: no auditory hallucinations and no visual hallucinations Cognition: attention grossly intact and language grossly intact Estimated Intelligence: consistent with education level Insight: + limited insight Judgement: + limited judgement Vital Signs (Past 24 Hours): Last Vital Signs Temp 37 C 01/25/21 11:39 Pulse 88 01/25/21 11:39 Resp 16 01/25/21 11:39 BP 102/67 01/25/21 11:39 Pulse Ox 96 01/25/21 11:39 Review of Systems All systems reviewed & are unremarkable except as noted in HPI & below (poor concentration) Results & Data ([facility]) Medications Administered Lactated Ringer's (Lr) 1,000 mls @ 125 mls/hr IV .Q8H RICKY Stop: 01/26/21 02:29 Last Admin: 01/25/21 10:24 Dose: 125 mls/hr Documented by: [id number] Nicotine (Nicotine 14 Mg/24 Hr Patch) 14 mg TD QAM RICKY Stop: 02/24/21 10:29 Last Admin: 01/25/21 11:00 Dose: 14 mg Documented by: [id number] Coding Level of Care Code 11001 Inpt Consult Level 3 Diagnoses Depressive disorder F32.9
--- NOTE | 2021-01-25 15:23 | Electrocardiogram Report ---
Test Reason : Blood Pressure : / mmHG Vent. Rate : 126 BPM Atrial Rate : 126 BPM P-R Int : 156 ms QRS Dur : 096 ms QT Int : 296 ms P-R-T Axes : 030 000 037 degrees QTc Int : 428 ms Sinus tachycardia Otherwise normal ECG Confirmed by Francisco Javier Lake ([id number]) on 01/25/2021 3:23:13 PM Referred By: REFERRED SELF Confirmed By:Francisco Javier Lake
--- NOTE | 2021-01-25 15:27 | Electrocardiogram Report ---
Test Reason : Blood Pressure : / mmHG Vent. Rate : 092 BPM Atrial Rate : 092 BPM P-R Int : 146 ms QRS Dur : 094 ms QT Int : 334 ms P-R-T Axes : 016 030 015 degrees QTc Int : 413 ms Normal sinus rhythm RSR' or QR pattern in V1 suggests right ventricular conduction delay Otherwise Normal ECG When compared with ECG of 25-JAN-2021 01:42, (unconfirmed) No significant change Confirmed by Francisco Javier Lake ([id number]) on 01/25/2021 3:27:29 PM Referred By: REFERRED SELF Confirmed By:Francisco Javier Lake
[2021-01-25] MEDS: PIPERACILLIN/TAZOBACTAM 3.375 GM in DEXTROSE 5% 100 ML IV SCH (17:04)
[2021-01-25] MEDS: ACETAMINOPHEN 325 MG TAB PO PRN (20:31)
[2021-01-25 22:30] LABS: Appearance Urine Clear (Clear); Bilirubin Urine Negative (Negative); Blood Urine Negative (Negative); Color Urine Yellow; Glucose Urine UA Negative (Negative); Ketones Urine Negative (Negative); Leukocyte Esterase Urine Negative (Negative); Nitrite Urine Negative (Negative); Protein Urine Negative (Negative); Urobilinogen Urine Negative (Negative)
[2021-01-25 22:50] LABS: Amphetamines+Metham, Urine Neg (Neg); Barbiturates, Urine Neg (Neg); Benzodiazepine, Urine Neg (Neg); Cocaine, Urine Neg (Neg); MDMA (Ecstacy), Urine Neg (Neg); Methadone, Urine Neg (Neg); Opiate, Urine Neg (Neg); Phencyclidine, Urine Neg (Neg)
[2021-01-26] MEDS: PIPERACILLIN/TAZOBACTAM 3.375 GM in DEXTROSE 5% 100 ML IV SCH ×2 (00:27→07:54)
[2021-01-26 05:44] LABS: Basophils # (auto) 0.05 K/uL (0-0.2); Basophils % (auto) 0.5 %; Eosinophils % (auto) 2.1 %; Hematocrit (blood only) 37.9 % (42-52); Hemoglobin 12.8 g/dL (14.0-18.0); Immature Granulocytes # (auto) 0.02 K/uL (0.00-0.02); Immature Granulocytes % (auto) 0.2 %; Lymphocytes # (auto) 4.52 K/uL (1.2-3.4); Lymphocytes % (auto) 48.2 %; Mean Corpuscular Hemoglobin 30.7 pg (25-34); Mean Corpuscular Hgb Conc 33.8 g/dL (32-36); Mean Corpuscular Volume 90.9 fL (80-100); Mean Platelet Volume 10.4 fL (7.4-10.4); Monocytes # (auto) 0.79 K/uL (0.11-0.59); Monocytes % (auto) 8.4 %; Neutrophils % (auto) 40.6 %; Platelet Count 181 K/uL (130-400); RDW Standard Deviation 42.8 fL (36.4-46.3); Red Blood Count 4.17 M/uL (4.7-6.1); White Blood Count 9.38 K/uL (4.8-10.8)
[2021-01-26 05:59] LABS: Albumin Level 3.3 gm/dl (3.4-5.0); BUN Creatinine Ratio 8.3 (10-20); Bilirubin Direct 0.1 mg/dl (0-0.2); Calcium 8.5 mg/dl (8.5-10.1); Creatinine Clr Calc Pharmacy 138.3 ml/min; Est GFR (African American) 134.2 ml/min; Est GFR (Non-African American) 115.8 ml/min; Magnesium 2.2 mg/dl (1.8-2.4)
[2021-01-26 06:02] LABS: Bilirubin,Total 0.3 mg/dl (0.2-1); Total Protein 6.3 gm/dl (6.4-8.2)
[2021-01-26] MEDS: ACETAMINOPHEN 325 MG TAB PO PRN (07:42)
[2021-01-26] MEDS: NICOTINE 14 MG/24 HR PATCH TD SCH (09:04)
--- NOTE | 2021-01-26 11:08 | Hospitalist Progress Note ---
Date of Service January 26, 2021 Assessment & Plan (1) Accidental heroin overdose: (2) Elevated troponin: (3) Leukocytosis: (4) MARY (acute kidney injury): (5) Transaminitis: Plan: This is a 30-year-old male who has a history of Voiok-Kgdmljouf-Oxbiq status post ablation around age 16, depression and anxiety, tobacco abuse, history of prior drug abuse who presented to ER on 01/24 after being found unresponsive at home. He lives with his girlfriend. Patient admits to obtaining free heroin and opted to snort it yesterday. His last drug use was approximately 6 months ago. He has never had a drug overdose in the past. He states he took a smaller amount than he usually does so he is surprised this happened. He does not recall any further events. He denies suicidal or homicidal ideation. He was found by his girlfriend who felt he did not have a pulse and initiated CPR. EMS was summoned and was able to obtain a pulse when they arrived to patient. He did receive IV Narcan which improved his status. On admission patient was found to have leukocytosis, acute kidney injury, hyperglycemia, mild transaminitis and mild elevation in troponin likely in setting of demand ischemia, drug overdose and unresponsiveness. Unresponsive Heroin overdose Status post Narcan administration Patient is alert and oriented and overall feels improved Leukocytosis wbc on admission 25k - resolved initial concern for aspiration Started empirically on IV zosyn blood cultures pending like reactive in setting of OD and unresponsive UA, CXR and Chest CTA negative, pt asymptomatic Discontinue Zosyn if initial blood culture for 24 hour negative Elevated troponin likely demand ischemia pt reports MSK chest wall pain 2/2 to CPR Echo reviewed and WNL EKG this a.m. NSR 66 bpm, trop now WNL MARY presented with cr 1.64 repeat 10hrs later 1.02 after fluid administration received additional 2L yesterday cr 0.9 today likely in setting of initial hypotension due to unresponsive episode Hyperglycemia a1c 5.4 glucose 254 on arrival, likely in setting of unresponsive state resolved, FBS 102 today Mild transaminitis hepatitis panel pending improving Hx of lozano parkinson white s/p ablation around 13-14 years old Tobacco abuse nicotine patch ordered smoking cessation encourage Dispo: PCU, likely discharge today PCP: FULL CODE Pt was seen and examined in collaboration with Dr. Celaya, please see addendum Discussed with pt Girlfriend at his request, Jane, and she understands and in agreement with above Admission and Anticipated Discharge Date Admission Date: January 25, 2021 Subjective Patient was seen and examined in room 240-1. Follow-up heroin overdose, status post unresponsive with response to Narcan. Pt c/o of posterior JACOME this morning. States he has had it since admitted. Denies visual change/phonophobia. Does admit to being sensitive to light. Denies hx of migraines but states +FH. Overall had uneventful night. Denies f/c/s, chest pain, sob, n/v/d, abd pain. He is tolerating diet but overall decreased appetite. Review of Systems Review of Systems: All systems reviewed & are unremarkable except as noted in HPI & below Physical Exam Physical Exam: Gen: WD/WN, M, NAD, A&O x3 HEENT: Normocephalic, atraumatic, conjunctivae moist and hyperemic, sclerae anicteric, mucous membranes moist. Lung: Clear to Auscultation bilaterally, no wheezes/rales/rhonchi Heart: Regular rate, regular rhythm, no murmurs, rubs, or gallops Abdomen: Soft, NT, ND +BS x 4 Extremities: No edema Skin: Warm, no rash, negative turgor. Results & Data Results & Data ([facility]) Vital Signs (Past 12 Hours) Vital Signs Temp Pulse Resp BP Pulse Ox 01/26/21 09:13 111 H 01/26/21 07:12 37 C 62 18 118/76 97 01/26/21 00:05 36.7 C 69 18 117/70 99 Laboratory Results Short CBC 01/25/21 01/26/21 Range/Units 10:47 05:23 WBC 11.24 H D 9.38 (4.8-10.8) K/uL Hgb 12.9 L 12.8 L (14.0-18.0) g/dL Hct 37.7 L 37.9 L (42-52) % Plt Count 192 181 (130-400) K/uL BMP 01/25/21 01/26/21 10:47 05:23 Sodium 138 142 Potassium 3.5 4.0 Chloride 104 108 H Carbon Dioxide 28 31 BUN 9 8 Creatinine 1.02 0.90 Glucose 107 H 102 H Calcium 8.5 8.5 Cardiac Enzymes 01/25/21 01/25/21 Range/Units 10:47 18:04 Troponin I 0.089 H* 0.038 (0-0.045) ng/ml Liver Function 01/26/21 Range/Units 05:23 Total Bilirubin 0.3 (0.2-1) mg/dl Direct Bilirubin 0.1 (0-0.2) mg/dl AST 44 H (15-37) U/L ALT 91 H (12-78) U/L Alkaline Phosphatase 43 L (45-117) U/L Albumin 3.3 L (3.4-5.0) gm/dl Urine 01/25/21 Range/Units 22:15 Urine Color Yellow Urine Appearance Clear (Clear) Urine pH 6.0 (4.5-7.5) Ur Specific [place] 1.010 (1.000-1.030) Urine Protein Negative (Negative) Urine Glucose (UA) Negative (Negative) Medications Administered Current Inpatient Medications Acetaminophen (Acetaminophen 325 Mg Tab) 650 mg PO Q4H PRN PRN Reason: Pain or Fever Stop: 02/24/21 09:48 Last Admin: 01/26/21 07:42 Dose: 650 mg Documented by: Piperacillin Sod/Tazobactam (Sod 3.375 gm/ Dextrose) 115 mls @ 28.75 mls/hr IV Q8H [facility]; Protocol Stop: 01/27/21 09:48 Last Admin: 01/26/21 07:54 Dose: 28.8 mls/hr Documented by: Miscellaneous (Remove Nicoderm Patch) 1 ea N/A DAILY@0859 [facility] Stop: 02/25/21 08:58 Last Admin: 01/26/21 08:14 Dose: 1 ea Documented by: Miscellaneous Information (Piperacill/Tazobac Consult Active) 1 ea N/A UD PRN PRN Reason: Consult Stop: 02/24/21 09:48 Nicotine (Nicotine 14 Mg/24 Hr Patch) 14 mg TD QAM [facility] Stop: 02/24/21 10:29 Last Admin: 01/26/21 09:04 Dose: 14 mg Documented by: Nitroglycerin (Nitroglycerin Sl 0.4 Mg/Tab Tab) 0.4 mg SL UD PRN PRN Reason: Chest Pain Stop: 02/24/21 09:48 Ondansetron HCl (Ondansetron Inj 2 Mg/Ml 2 Ml Vial) 4 mg IV Q6H PRN PRN Reason: Nausea Stop: 02/24/21 09:48 Polyethylene Glycol (Polyethylene (Miralax) 17 Gm Pack) 17 gm PO DAILY PRN PRN Reason: Constipation Stop: 02/24/21 09:48 (1) Accidental heroin overdose Encounter type: initial encounter Qualified Code(s): T40.1X1A - Poisoning by heroin, accidental (unintentional), initial encounter
[2021-01-26] MEDS ORDERED: IBUPROFEN 600 MG TAB PO STA (14:08)
--- NOTE | 2021-01-26 14:42 | Discharge Summary ---
Date of Service January 26, 2021 Admission HPI Per Admitting Provider HISTORY OF PRESENT ILLNESS: This is a 30-year-old male with past medical history significant for depression, anxiety, history of drug use in the past, was brought in because of an unresponsive episode at home. The patient lives with his girlfriend. He does not know what happened. He says he was snorting heroin. Currently he is alert and awake. Says He did not use the heroin for last 6 months, but he got it for free and he was using it last night. He said he did not use much and he does not know what happened. It looks like he was passed out and when the EMS arrived, his girlfriend was doing CPR. He was given Narcan by the EMS and was brought in here. Currently, he is alert and awake, he is hemodynamically stable. CTA of the chest and CT of the head results are pending. Labs show white count of 25,000. Creatinine 1.6, glucose 254. SARS-CoV-2 PCR negative. The patient says he has some pain in the right brow region of the head. He thinks he might have hit it when he might have fallen down. Denies any headache. Other than that, denies any other pain. No blurred vision, double vision, no earache, no runny nose, no sore throat. He has smoker's cough. He says he smokes 1 pack a day for many years. Currently, he is feeling dry, wants to drinks water. Denies any chest pain. No shortness of breath, no nausea, no vomiting, no abdominal pain. He says he has normal bowel and bladder movements. Denies any blood in the stools or black stools, no hematuria. No rash. Once in a while, he says his body swells up. He says he used to do IV drugs a long time back, but not any more. Admission Exam Per Admitting Provider PHYSICAL EXAMINATION: GENERAL: The patient is of moderate build, not in acute distress. VITAL SIGNS: Temperature 36.7, pulse 99, respiratory rate 18, blood pressure 116/63, oxygen 98% on room air. HEENT: Pupils equal, round and reactive to light. Oral mucosa dry. NECK: No JVD. No neck masses. CARDIOVASCULAR: S1 and S2 heard, regular rate and rhythm. No murmur, no gallop. RESPIRATORY SYSTEM: Normal AP diameter. No accessory muscle use. No wheezing, no crackles. ABDOMEN: Soft, bowel sounds present, nontender, no distention. CENTRAL NERVOUS SYSTEM: Cranial nerves II-XII grossly intact, nonfocal. EXTREMITIES: No edema, no erythema. Principal Diagnosis Unresponsiveness Accidental heroin overdose status post Narcan administration Elevated troponin Leukocytosis MARY Transaminitis Discharge Exam Physical Exam: Gen: WD/WN, M, NAD, A&O x3 HEENT: Normocephalic, atraumatic, conjunctivae moist and hyperemic, sclerae anicteric, mucous membranes moist. Lung: Clear to Auscultation bilaterally, no wheezes/rales/rhonchi Heart: Regular rate, regular rhythm, no murmurs, rubs, or gallops Abdomen: Soft, NT, ND +BS x 4 Extremities: No edema Skin: Warm, no rash, negative turgor. Discharge Data Allergies Allergy/AdvReac Type Severity Reaction Status Date / Time bee venom protein (honey bee) Allergy Intermediate swelling Verified 10/21/19 19:35 Sulfa (Sulfonamide Allergy Unknown Unknown Verified 10/21/19 19:35 Antibiotics) Consultations Psychiatry: Impression 30 yo male s/p opiate OD, no evidence of suicide attempt (1) Depressive disorder: patient refuses D&A counseling and rehab he is encouraged to restart Zoloft (50 mg and titrate to 150 mg as tolerated) with f/u with Dr. Matta, but only if he can commit to taking consistently abstain from substances Ordered Studies Chest X-Ray 01/25/21 01:45 XR chest 1V portable HISTORY: Overdose. Altered mental status. COMPARISON: None. FINDINGS: The lungs are clear. Cardiac silhouette is normal in size. No pleural effusions. No pneumothorax. IMPRESSION: No acute process. ACT 112: Negative or not required by law. Electronically signed by: Marko Montero M.D. 01/25/2021 7:[address] 01/25/21 01:45 CT SCAN OF THE BRAIN WITHOUT IV CONTRAST CLINICAL HISTORY: Change in mental status. Overdose. COMPARISON STUDY: No priors. TECHNIQUE: Unenhanced axial CT scan of the brain is performed from the vertex to the skull base. A dose lowering technique was utilized adhering to the principles of ALARA. CT DOSE: 537.48 mGy.cm FINDINGS: Brain parenchyma: The brain parenchyma is normal in appearance. There is no hemorrhage, mass effect, or evidence of acute territorial ischemia by CT criteria. Carroll-white matter differentiation is preserved. No extra-axial fluid collection is seen. Ventricles, sulci, cisterns: Normal in configuration. Intracranial vasculature: The visualized intracranial vasculature at the skull base is normal in appearance. Calvarium: Unremarkable. Sinuses and mastoids: The visualized paranasal sinuses are clear. The mastoid air cells are well pneumatized. Orbits: The bony orbits are grossly intact. IMPRESSION: No acute intracranial abnormality. ACT 112: Negative or not required by law. Electronically signed by: Martin Kirby M.D. 01/25/2021 7:12 AM Chest CTA 01/25/21 02:36 CHEST CTA for PULMONARY ARTERIES CT DOSE: 349.04 mGy.cm HISTORY: Overdose. Altered mental status. Assess for pulmonary embolus. TECHNIQUE: Multiaxial CT images of the chest were performed following the intravenous administration of contrast to evaluate the pulmonary arteries. Maximal intensity projection images were also obtained. A dose lowering techn ique was utilized adhering to the principles of ALARA. COMPARISON STUDY: None. FINDINGS: There is a normal caliber thoracic aorta with no evidence for dissection. There is no evidence for pulmonary embolus. No pleural effusions. No pneumothorax. The liver and spleen are unremarkable. No mediastinal or hilar lymphadenopathy. The central airways are patent. Mild dependent changes at the lung bases. There is mild respiratory motion artifact resulting in suboptimal evaluation of the distal lower lobe pulmonary arteries. IMPRESSION: No evidence for pulmonary embolus. ACT 112: Negative or not required by law. Electronically signed by: Marko Montero M.D. 01/25/2021 7:22 AM Hospital Course (1) Accidental heroin overdose: (2) Elevated troponin: (3) Leukocytosis: (4) MARY (acute kidney injury): (5) Transaminitis: This is a 30-year-old male who has a history of Vshwu-Haqvtqhju-Smkia status post ablation around age 16, depression and anxiety, tobacco abuse, history of prior drug abuse who presented to ER on 01/24 after being found unresponsive at home. He lives with his girlfriend. Patient admits to obtaining free heroin and opted to snort it yesterday. His last drug use was approximately 6 months ago. He has never had a drug overdose in the past. He states he took a smaller amount than he usually does so he is surprised this happened. He does not recall any further events. He denies suicidal or homicidal ideation. He was found by his girlfriend who felt he did not have a pulse and initiated CPR. EMS was summoned and was able to obtain a pulse when they arrived to patient. He did receive IV Narcan which improved his status. On admission patient was found to have leukocytosis, acute kidney injury, hyperglycemia, mild transaminitis and mild elevation in troponin likely in setting of demand ischemia, drug overdose and unresponsiveness. An echocardiogram was performed which revealed normal ejection fraction and no wall motion abnormality. He received IV fluid which gradually improved and resolved his MARY. He was empirically started on IV Zosyn secondary to significant leukocytosis and concern for possible aspiration. Chest x-ray and CTA chest was negative for acute cardiopulmonary abnormality. Initial blood culture first 24-hour was negative. He remained afebrile and hemodynamically stable throughout hospitalization and antibiotics were discontinued. He was also found to have a mild transaminitis which gradually down trended on day of admission. Hepatitis panel was pending at discharge. He was seen and evaluated by psychiatry and overdose felt to be accidental this patient denied suicidal or homicidal ideation. He further declined drug rehab which was offered to him from hospital service, psychiatry and case management. Psychiatry did recommend initiation of Zoloft, but will be deferred to PCP. At time of discharge patient was alert and oriented x3, offers no acute complaints and was hemodynamically stable. He was tolerating a regular diet. Total Time Total Time Spent Total Time Spent (In Minutes): 45 minutes Total Time Includes: Examination of the Patient, Discharge Planning, Medication Reconciliation, Communication With Other Providers and Other Discharge Plan Discharge Items Patient Disposition: Home - Self-Care Reason For Visit: UNRESPONSIVE Discharge Diagnosis: Accidental Heroin Overdose Unresponsive Elevated troponin Acute Kidney Injury Elevated liver function Condition on Discharge: Good Activity: As commented below Activity Comment: resume previous activity as tolerated Bathing: No limitations Weightbearing: Full weightbearing Non-emergency contact: Primary Care Provider Call non-emergency contact if: you have any medication questions, your symptoms worsen, your pain is not controlled, your pain is worsening, your pain is unusual for you, your pain is concerning for you and you have a fever Follow-up/Referrals: Eros Matta MD [Primary Care Provider] - (Date & Time 02/02/2021 2:40 PM Provider Eros Matta MD Department [facility] ) Diet: Regular Addtl Attending Provider Instructions: MEDICATION CHANGES: None SUMMARY OF TEST RESULTS: You were admitted to [facility] due to Heroin overdose and unresponsiveness. You received Narcan which reversed the effects of heroin and you regained consciousness. You were found to have elevated kidney and liver functions and heart enzymes. An echocardiogram of your heart was performed which revealed normal heart function. You were treated with IV fluids which improved your kidney functions and returned them to normal. Psychiatry and case management were involved in your care and offered drug rehab, which was declined. PENDING TEST RESULTS: Hepatitis panel RECOMMENDATIONS FOR FOLLOW-UP: Follow up with your primary care Doctor, Dr. Matta as scheduled. Follow up results of your hepatitis panel that is pending at time of discharge. Abstain from using any illegal substances or drugs to prevent further overdose! Discuss with your PCP regarding obtaining Narcan to have in your home in event of future overdose. Recommend to follow up and establish with drug rehab as outpatient. Advise smoking cessation! OTHER INSTRUCTIONS: Seek medical attention if you have: * temperature above 101 * chest pain or trouble breathing * abdominal pain, nausea, vomiting * diarrhea, dark stools or bloody stools * any unanswered questions or concerns Call 911 if symptoms are severe. Please take good care of yourself. It has been a pleasure taking care of you. Please take care of yourself. If you have any questions regarding your recent hospitalization please contact [facility] and request anca Hospitalist @ [phone]. So Shah PA-C Pending Studies at Discharge: Yes Studies:: Hepatitis Panel Stand-Alone Forms: [facility], Smoking Cessation Medications and DC Order Discharge Orders: Discharge Order (Routine); Ordered 01/26/21 Ordered By: So Shah Admission Data Admit Date/Time: 01/25/21 05:44 Attending Provider: Mari Celaya Admit Provider: Armaan Wang Primary Care Provider: Eros Matta Other Providers: Armaan Wang ; Yumi Oliver ; Adele Corona ; Kayleigh Fuentes ; Eros Shrestha ; So Shah
[2021-01-27 06:36] LABS: HBSAG NON-REACTIVE (NON-REACTIVE); Hepatitis A Antibody IgM NON-REACTIVE (NON-REACTIVE); Hepatitis B Core Antibody IgM NON-REACTIVE (NON-REACTIVE); Hepatitis C Vira RNA (Log) PCR 5.21 Log IU/mL (NOT DETECTED); Hepatitis C Viral RNA by PCR 161000 IU/mL (NOT DETECTED)
== END 2021-01-26 16:50 | disposition home or self-care (01) | DRG 918 ==
LOC: ED 01:33 → 2S 05:44 → SUATTDRO 05:44 → 2S 09:34